=== PATIENT | male | born 1935 | race Caucasian/White ===

== ENCOUNTER 2021-07-06 14:29 | Emergency (ER) | payer MEDICARE, OTHER ==
[~2021-07-06] VITALS: Ht 167.6 cm; Wt 81.7 kg
[~2021-07-06 14:29] MED LIST: ARICEPT10 MG PO; ENALAPRIL MALEA10 MG PO; LEVO-T25 MCG PO; LIPITOR40 MG PO
[2021-07-06] MEDS ORDERED: LEVOTHYROXINE50 MCG PO (15:09)
[2021-07-06] MEDS ORDERED: ATORVASTATIN CA20 MG PO (15:09)
[2021-07-06] MEDS ORDERED: SERTRALINE HCL50 MG PO (15:10)
[2021-07-06] MEDS ORDERED: OXYBUTYNIN CHLOR5 M1 PO (15:10)
[2021-07-06] MEDS ORDERED: DONEPEZIL HCL10 MG PO (15:11)
[2021-07-06] MEDS ORDERED: OMEPRAZOLE20 MG PO (15:11)
[2021-07-06] MEDS ORDERED: BAYER CHEWABLE81 MG PO (15:13)
--- NOTE | 2021-07-07 15:53 | EKG ---
[facility] [address] [facility] [place] [address] Signed Normal sinus rhythm Left bundle branch block Abnormal ECG When compared with ECG of 18-MAY-2019 18:19, No significant change was found Confirmed by SHARON LEON MD ([id number] on 07/07/2021 3:53:21 PM Electronically Signed By: SHARON LEON MD 07/07/21 1553 PATIENT NAME: JEREMY OCHOA Electrocardiogram DATE OF : 37 PHYSICIAN: SHARON LEON MD REPORT #: [id number] REPORT IS CONFIDENTIAL AND NOT TO BE RELEASED WITHOUT AUTHORIZATION
== END 2021-07-06 18:04 | disposition home or self-care (01) ==
LOC: ED 14:29
DX: H83.01 Labyrinthitis, right ear (principal); I65.21 Occlusion and stenosis of right carotid artery; I72.5 Aneurysm of other precerebral arteries; E11.9 Type 2 diabetes mellitus without complications; Z91.012 Allergy to eggs; Z79.82 Long term (current) use of aspirin; Z79.899 Other long term (current) drug therapy; Z20.822 Contact with and (suspected) exposure to COVID-19
CPT/HCPCS: 70450; 70496; 70498; 71045; 80053; 81001; 83735; 84484; 85025; 93005; 93010; 99284-25; C9803; J1100; Q9967; U0003

== ENCOUNTER 2023-05-12 16:28 | Emergency (ER) | payer MEDICARE, OTHER ==
[~2023-05-12] VITALS: Ht 167.6 cm; Wt 81.6 kg
[~2023-05-12 16:28] MED LIST changes: +ATORVASTATIN CA20 MG PO; +BAYER CHEWABLE81 MG PO; +DONEPEZIL HCL10 MG PO; +LEVOTHYROXINE50 MCG PO; +OMEPRAZOLE20 MG PO; +OXYBUTYNIN CHLOR5 M1 PO; +SERTRALINE HCL50 MG PO
[2023-05-12] MEDS ORDERED: VENTOLIN HFA18 GM INH (18:28)
[2023-05-12] MEDS ORDERED: PREDNISONE20 MG PO (18:28)
[2023-05-12] MEDS ORDERED: DOXYCYCLINE HY100 MG PO (18:28)
[2023-05-12 18:48] VITALS: BP 120/68
== END 2023-05-12 18:49 | disposition home or self-care (01) ==
LOC: ED 16:28
DX: U07.1 COVID-19 (principal); G30.9 Alzheimer's disease, unspecified; F02.80 Dementia in other diseases classified elsewhere, unspecified severity, without behavioral disturbance, psychotic disturbance, mood disturbance, and anxiety; E11.9 Type 2 diabetes mellitus without complications; G47.30 Sleep apnea, unspecified; I25.10 Atherosclerotic heart disease of native coronary artery without angina pectoris; M17.0 Bilateral primary osteoarthritis of knee; Z91.012 Allergy to eggs; Z79.899 Other long term (current) drug therapy; Z79.82 Long term (current) use of aspirin
CPT/HCPCS: 36415; 71046; 80053; 83605; 85025; 96374; 99283 25; J1100